=== PATIENT | male | born 1960 | race Two or more races ===

== ENCOUNTER 2019-02-09 09:36 | Inpatient (IN) | payer MEDICAID ==
[~2019-02-09] VITALS: Ht 167.6 cm; Wt 156.8 kg
[2019-02-09] MEDS ORDERED: normal saline 1000ML IV soln IV ONE (09:45)
[2019-02-09] MEDS ORDERED: piperacillin/tazo 3.375gm/50ml 50 ML IV ONE (09:45)
[2019-02-09] MEDS ORDERED: HYDROcodone/acetaminophen 5mg/325mg tablet PO ONE (10:00)
[2019-02-09] MEDS ORDERED: ondansetron/PF 4mg/2ml inj IV ONE (10:00)
[2019-02-09 10:22] LABS: BASOPHILS # (AUTO) 0.1 X10'3 (0-0.2); BASOPHILS % (AUTO) 0.4 % (0-1); EOSINOPHILS % (AUTO) 0.2 % (0-6); HEMATOCRIT 47.1 % (42.0-52.0); HEMOGLOBIN 15.3 g/dl (14.0-17.9); LYMPHOCYTES # (AUTO) 0.3 X10'3 (1.1-4.8); LYMPHOCYTES % (AUTO) 2.4 % (21-51); MEAN CORPUSCULAR HEMOGLOBIN 30.9 PG (27.0-31.0); MEAN CORPUSCULAR HGB CONC 32.5 g/dL (33.0-36.5); MEAN CORPUSCULAR VOLUME 94.9 FL (78-98); MEAN PLATELET VOLUME 10.8 FL (7.4-10.4); MONOCYTES # (AUTO) 0.7 X10'3 (0-0.9); MONOCYTES % (AUTO) 5.2 % (2-12); NEUTROPHILS % (AUTO) 91.8 % (42-75); PLATELET COUNT 230 X10'3 (140-440); RED BLOOD COUNT 4.96 X10'6 (4.70-6.10); RED CELL DISTRIBUTION WIDTH 13.6 % (11.5-14.5); WHITE BLOOD COUNT 14.2 X10'3 (4.5-11.0)
[2019-02-09] MEDS: vancomycin/NS 1 GM ADD-VANTAGE 250 ML IV ONE ×2 (10:24→11:10)
[2019-02-09 10:33] LABS: PARTIAL THROMBOPLASTIN TIME 28 SECONDS (22-32)
[2019-02-09] MEDS ORDERED: normal saline 1000ml 1,000 ML IV ONE (10:35)
[2019-02-09 10:36] LABS: ALANINE AMINOTRANSFERASE 36 U/L (12-78); ALBUMIN 3.2 G/DL (3.4-5.0); ALBUMIN/GLOBULIN RATIO 0.9 (1.1-1.5); ALKALINE PHOSPHATASE 93 IU/L (46-116); ANION GAP 9 (8-16); ASPARTATE AMINO TRANSFERASE 15 U/L (10-37); BILIRUBIN,TOTAL 0.8 MG/DL (0.1-1.0); BLOOD UREA NITROGEN 13 MG/DL (7-18); BUN/CREATININE RATIO 10.6 (5.4-32.0); CALCIUM 9.1 MG/DL (8.5-10.1); CHLORIDE 98 MMOL/L (99-107); CREATININE 1.23 MG/DL (0.60-1.10); GLUCOSE 332 MG/DL (70-104); MAGNESIUM 1.5 MG/DL (1.5-2.4); POTASSIUM 3.8 MMOL/L (3.5-5.1); SODIUM 137 MMOL/L (135-145); TOTAL CARBON DIOXIDE 30.1 MMOL/L (24-32); TOTAL PROTEIN 6.9 G/DL (6.4-8.2); eGFR 61 ML/MIN
[2019-02-09] MEDS ORDERED: ketorolac trometh. 30mg/ml inj. IV ONE (11:15)
[2019-02-09] MEDS ORDERED: ketorolac tromethamine 15mg/ml inj. IV ONE (11:15)
[2019-02-09 11:29] LABS: LARGE PLATELETS FEW; PLATELET ESTIMATE NORMAL
[2019-02-09] MEDS ORDERED: HYDROcodone/acetaminophen 5mg/325mg tablet PO PRN (11:35)
[2019-02-09] MEDS ORDERED: magnesium 4gm in 100ml NS 100 ML IV PRN (11:35)
[2019-02-09] MEDS ORDERED: potassium Cl 20 mEq SR tablet PO PRN ×2 (11:35)
[2019-02-09] MEDS ORDERED: glucagon, human recombinant 1mg kit SUBCUT PRN (11:35)
[2019-02-09] MEDS ORDERED: potassium Cl 40MEQ/NS 500ml 500 ML IV PRN ×2 (11:35)
[2019-02-09] MEDS ORDERED: ondansetron/PF 4mg/2ml inj IV PRN (11:35)
[2019-02-09] MEDS ORDERED: mag hydrox/Alum hydrox/simeth 30ml oral suspension PO PRN (11:35)
[2019-02-09] MEDS ORDERED: dextrose ORAL solution 15 GM/59 ML bottle PO PRN ×2 (11:35)
[2019-02-09] MEDS ORDERED: dextrose 50%-water 50ml dispensing syringe IV PRN ×2 (11:35)
[2019-02-09] MEDS ORDERED: acetaminophen 325mg tablet PO PRN (11:35)
[2019-02-09] MEDS ORDERED: magnesium 2GM in 50ml NS 50 ML IV PRN (11:35)
[2019-02-09] MEDS ORDERED: magnesium hydroxide 30ml (MOM) UD suspension PO PRN (11:35)
[2019-02-09] MEDS ORDERED: MESSAGE TO PHARMACY PO ONE (11:35)
[2019-02-09 11:38] LABS: CLARITY,URINE CLEAR (Clear); COLOR,URINE YELLOW (Yellow); GLUCOSE, URINE >=1000 mg/dl (Neg); KETONES,URINE NEGATIVE (Neg); LEUKOCYTE ESTERASE ,URINE NEGATIVE (Neg); NITRITES, URINE NEGATIVE (Neg); OCCULT BLOOD,URINE TRACE-INTACT (Neg); PROTEIN,URINE 30 mg/dl (Neg)
[2019-02-09] MEDS: normal saline 1000ml 1,000 ML IV SCH ×2 (11:44→18:08)
[2019-02-09] MEDS ORDERED: LORazepam 1 MG tablet PO PRN (11:50)
[2019-02-09] MEDS ORDERED: haloperidol 5mg tablet PO PRN (11:50)
[2019-02-09] MEDS ORDERED: haloperidol lactate 5mg/ml inj IM PRN (11:50)
[2019-02-09] MEDS ORDERED: thiamine inj. 100 MG in normal saline 100ml IV soln 100 ML IV ONE (11:50)
[2019-02-09] MEDS ORDERED: LORazepam 2 mg/ml vial IV PRN (11:50)
[2019-02-09 12:07] LABS: PH,URINE 6.5 (4.8-8.0)
[2019-02-09 12:08] LABS: UA COLLECTION TYPE NON-SPECIFIED
[2019-02-09 12:21] LABS: SQUAMOUS EPITHELIAL CELL,UR NONE SEEN /LPF (FEW)
[2019-02-09] MEDS ORDERED: METF-436 PO (12:21)
[2019-02-09 12:22] LABS: WBC,URINE 0-4 /HPF (0-4)
[2019-02-09 12:23] LABS: RBC,URINE 0-2 /HPF (0-2)
[2019-02-09 12:24] LABS: BACTERIA,URINE FEW /HPF (Neg)
[2019-02-09] MEDS ORDERED: LISI1TAB13 PO (12:36)
[2019-02-09] MEDS ORDERED: BUPR2TAB11 SL (12:36)
[2019-02-09] MEDS ORDERED: TRAM50TA2 PO (12:36)
[2019-02-09] MEDS ORDERED: PRIM50TA42 PO (12:36)
[2019-02-09] MEDS ORDERED: INSU100I31 SQ (12:36)
[2019-02-09] MEDS ORDERED: ERTU5TAB PO (12:36)
--- NOTE | 2019-02-09 13:09 | NUR ---
Wound pictures obtained of bilateral heels and placed in chart
[2019-02-09] MEDS: insulin Lispro (HumaLOG) vial - multi-dose SQ SCH ×3 (13:51→21:33)
[2019-02-09] MEDS: HYDROcodone/acetaminophen 10/325mg tab PO PRN (14:14)
[2019-02-09] MEDS: cefepime 1GM/NS ADD-VANTAGE 100 ML IV SCH (16:12)
[2019-02-09] MEDS: acetaminophen 325mg tablet PO PRN (16:34)
--- NOTE | 2019-02-09 17:14 | NUR ---
patient assisted to restroom at this time with walker, able to ambulate with out assistance, gait steady and balance, call light within reach.
--- NOTE | 2019-02-09 21:00 | NUR ---
pt sleeping, awakened to give the evening med and hs insulin for accucheck of 350.
[2019-02-09] MEDS: primidone 50mg tablet PO SCH (21:14)
[2019-02-09] MEDS: insulin glargine (Lantus) pen - multi-dose SQ SCH (21:16)
--- NOTE | 2019-02-09 21:58 | NUR ---
RELIEVING RN FOR BREAK, PT IS SLEEPING QUIETLY ON GURNEY, RESP EVEN AND UNLABORED
--- NOTE | 2019-02-09 23:38 | NUR ---
PT HAS ROOM ASSIGNMENT, 3028B, PT HAS ACCIDENTALLY PULLED OUT HIS IV. WILL REPLACE THIS PRIOR TO GOING UPSTAIRS.
[2019-02-10 00:15] VITALS: BP 167/92
[2019-02-10] MEDS: cefepime 1GM/NS ADD-VANTAGE 100 ML IV SCH ×3 (00:30→16:00)
[2019-02-10] MEDS: normal saline 1000ml 1,000 ML IV SCH ×2 (01:24→07:31)
[2019-02-10] MEDS: HYDROcodone/acetaminophen 10/325mg tab PO PRN (01:48)
[2019-02-10 02:00] VITALS: BP 151/87
[2019-02-10 05:37] LABS: BASOPHILS % (AUTO) 0.6 % (0-1); EOSINOPHILS % (AUTO) 0.4 % (0-6); HEMATOCRIT 42.7 % (42.0-52.0); HEMOGLOBIN 13.8 g/dl (14.0-17.9); LYMPHOCYTES # (AUTO) 0.7 X10'3 (1.1-4.8); LYMPHOCYTES % (AUTO) 9.8 % (21-51); MEAN CORPUSCULAR HGB CONC 32.4 g/dL (33.0-36.5); MEAN CORPUSCULAR VOLUME 95.7 FL (78-98); MEAN PLATELET VOLUME 10.6 FL (7.4-10.4); MONOCYTES # (AUTO) 0.8 X10'3 (0-0.9); MONOCYTES % (AUTO) 10.4 % (2-12); NEUTROPHILS # (AUTO) 5.8 X10'3 (1.8-7.7); NEUTROPHILS % (AUTO) 78.8 % (42-75); PLATELET COUNT 181 X10'3 (140-440); RED BLOOD COUNT 4.46 X10'6 (4.70-6.10); RED CELL DISTRIBUTION WIDTH 14.1 % (11.5-14.5); WHITE BLOOD COUNT 7.4 X10'3 (4.5-11.0)
[2019-02-10 06:00] VITALS: BP 185/105
[2019-02-10 06:05] LABS: ALANINE AMINOTRANSFERASE 83 U/L (12-78); ALBUMIN 2.8 G/DL (3.4-5.0); ALBUMIN/GLOBULIN RATIO 0.8 (1.1-1.5); ALKALINE PHOSPHATASE 86 IU/L (46-116); AMYLASE 15 U/L (25-115); ANION GAP 7 (8-16); ASPARTATE AMINO TRANSFERASE 62 U/L (10-37); BILIRUBIN,TOTAL 0.8 MG/DL (0.1-1.0); BLOOD UREA NITROGEN 17 MG/DL (7-18); BUN/CREATININE RATIO 18.3 (5.4-32.0); CALCIUM 8.5 MG/DL (8.5-10.1); CHLORIDE 101 MMOL/L (99-107); CREATININE 0.93 MG/DL (0.60-1.10); GLUCOSE 290 MG/DL (70-104); LIPASE 82 U/L (73-393); MAGNESIUM 1.9 MG/DL (1.5-2.4); PHOSPHORUS 3.1 MG/DL (2.3-4.5); POTASSIUM 4.4 MMOL/L (3.5-5.1); SODIUM 136 MMOL/L (135-145); TOTAL CARBON DIOXIDE 28.4 MMOL/L (24-32); TOTAL PROTEIN 6.3 G/DL (6.4-8.2); eGFR 84 ML/MIN
--- NOTE | 2019-02-10 06:20 | NUR ---
Patient in room PCU 3028. I have received report from Joanna FLORES and had the opportunity to ask questions and assume patient care.
[2019-02-10] MEDS: folic acid 1mg tablet PO SCH (07:40)
[2019-02-10] MEDS: multivitamins, therapeutics tablet PO SCH (07:40)
[2019-02-10] MEDS: HYDROchlorothiazide 25mg tablet PO SCH (07:40)
[2019-02-10] MEDS: lisinopril 20mg tablet PO SCH (07:41)
[2019-02-10] MEDS: thiamine 100mg tablet PO SCH (07:41)
[2019-02-10] MEDS: enoxaparin 40mg/0.4ml syringe SQ SCH (07:41)
[2019-02-10] MEDS: buprenorphine/naloxone 2-0.5mg sublingual tablet SL SCH (07:41)
[2019-02-10] MEDS ORDERED: folic acid inj. 2 MG, thiamine inj. 100 MG, MVI, adult No.4 with vit. K 10 ML in dextro... IV SCH ×4 (08:00)
[2019-02-10] MEDS ORDERED: non-formulary drug (Lisinopril/Hydrochlorothiazide (Lisinopril-Hctz 20-25 mg Tab) 1 TAB) PO SCH (08:00)
[2019-02-10] MEDS ORDERED: non-formulary drug (Buprenorphine Hcl 1 TAB) SL SCH (08:00)
[2019-02-10] MEDS: K and/or MAG REPLACEMENT MC SCH (08:00)
[2019-02-10] MEDS: insulin Lispro (HumaLOG) vial - multi-dose SQ SCH ×4 (10:50→22:05)
[2019-02-10 11:11] VITALS: BP 144/89
[2019-02-10] MEDS ORDERED: iohexol 350MG/ML 100ml bottle IV ONE (12:05)
--- NOTE | 2019-02-10 12:11 | NUR ---
DM Consult: A1C 10. Pt w/ BLE cellulitis and sepsis s/p cutting foot several months ago. Drinks multiple whiskeys each night on etoh protocol. PO 100% carb controlled meals. LBM /. Pt unable to wake during RD visit. Written DM/high protein eds left at bedside along w/ RD contact information. Double proteins TIDWM added given good PO, severe morbid obesity, and increased needs w/ infection. Rec: 1. continue carb controlled diet 2. double proteins TIDWM 3. thiamin for etoh hx 4. wt per rx Addendum: 02/10/19 at [address] Amended: Links added.
--- NOTE | 2019-02-10 16:30 | NUR ---
Problems reprioritized. Patient report given, questions answered & plan of care reviewed with Joslyn FLORES. Pt transfered to Surgical unit .
[2019-02-10] MEDS ORDERED: VANCOMYCIN LEVEL IV ONE (18:30)
--- NOTE | 2019-02-10 18:30 | NUR ---
Patient in room AMANDA 357. I have received report from NILES FLORES and had the opportunity to ask questions and assume patient care.
[2019-02-10] MEDS: lactobacillus rhamnosus 10,000 MMU CELLS/CAPSULE PO SCH (20:09)
[2019-02-10] MEDS: primidone 50mg tablet PO SCH (20:17)
[2019-02-10] MEDS: acetaminophen 325mg tablet PO PRN (20:40)
[2019-02-10] MEDS: insulin glargine (Lantus) pen - multi-dose SQ SCH (22:06)
[2019-02-11] VITALS: BP 169/90
[2019-02-11] MEDS: cefepime 1GM/NS ADD-VANTAGE 100 ML IV SCH ×3 (01:07→17:46)
[2019-02-11] MEDS: normal saline 1000ml 1,000 ML IV SCH ×2 (03:20→21:34)
[2019-02-11 06:23] LABS: BASOPHILS % (AUTO) 0.4 % (0-1); EOSINOPHILS # (AUTO) 0.1 X10'3 (0-0.9); EOSINOPHILS % (AUTO) 1.7 % (0-6); HEMATOCRIT 42.5 % (42.0-52.0); LYMPHOCYTES # (AUTO) 0.7 X10'3 (1.1-4.8); LYMPHOCYTES % (AUTO) 8.1 % (21-51); MEAN CORPUSCULAR HEMOGLOBIN 31.1 PG (27.0-31.0); MEAN CORPUSCULAR HGB CONC 32.8 g/dL (33.0-36.5); MEAN CORPUSCULAR VOLUME 94.8 FL (78-98); MEAN PLATELET VOLUME 10.1 FL (7.4-10.4); MONOCYTES # (AUTO) 0.8 X10'3 (0-0.9); MONOCYTES % (AUTO) 10.3 % (2-12); NEUTROPHILS # (AUTO) 6.5 X10'3 (1.8-7.7); NEUTROPHILS % (AUTO) 79.5 % (42-75); PLATELET COUNT 197 X10'3 (140-440); RED BLOOD COUNT 4.48 X10'6 (4.70-6.10); RED CELL DISTRIBUTION WIDTH 13.7 % (11.5-14.5); WHITE BLOOD COUNT 8.2 X10'3 (4.5-11.0)
--- NOTE | 2019-02-11 06:30 | NUR ---
Patient in room AMANDA 357. I have received report from VEDA FLORES and had the opportunity to ask questions and assume patient care.
--- NOTE | 2019-02-11 06:30 | NUR ---
Problems reprioritized. Patient report given, questions answered & plan of care reviewed with MELIDA RN.
[2019-02-11 06:36] LABS: ALANINE AMINOTRANSFERASE 100 U/L (12-78); ALBUMIN 2.7 G/DL (3.4-5.0); ALBUMIN/GLOBULIN RATIO 0.8 (1.1-1.5); ALKALINE PHOSPHATASE 94 IU/L (46-116); AMYLASE 16 U/L (25-115); ANION GAP 7 (8-16); ASPARTATE AMINO TRANSFERASE 43 U/L (10-37); BILIRUBIN,TOTAL 0.8 MG/DL (0.1-1.0); BLOOD UREA NITROGEN 15 MG/DL (7-18); BUN/CREATININE RATIO 21.4 (5.4-32.0); CALCIUM 8.6 MG/DL (8.5-10.1); CHLORIDE 100 MMOL/L (99-107); GLUCOSE 215 MG/DL (70-104); LIPASE 74 U/L (73-393); MAGNESIUM 1.9 MG/DL (1.5-2.4); PHOSPHORUS 2.3 MG/DL (2.3-4.5); SODIUM 136 MMOL/L (135-145); TOTAL CARBON DIOXIDE 28.8 MMOL/L (24-32); TOTAL PROTEIN 6.2 G/DL (6.4-8.2); eGFR > 90 ML/MIN
[2019-02-11 08:00] VITALS: BP 165/85
[2019-02-11] MEDS: K and/or MAG REPLACEMENT MC SCH (08:00)
[2019-02-11] MEDS: acetaminophen 325mg tablet PO PRN (08:27)
[2019-02-11] MEDS: lactobacillus rhamnosus 10,000 MMU CELLS/CAPSULE PO SCH ×2 (08:28→21:19)
[2019-02-11] MEDS: HYDROchlorothiazide 25mg tablet PO SCH (08:28)
[2019-02-11] MEDS: lisinopril 20mg tablet PO SCH (08:29)
[2019-02-11] MEDS: thiamine 100mg tablet PO SCH (08:30)
[2019-02-11] MEDS: multivitamins, therapeutics tablet PO SCH (08:30)
[2019-02-11] MEDS: buprenorphine/naloxone 2-0.5mg sublingual tablet SL SCH (08:30)
[2019-02-11] MEDS: folic acid 1mg tablet PO SCH (08:31)
[2019-02-11] MEDS: enoxaparin 40mg/0.4ml syringe SQ SCH (08:32)
[2019-02-11] MEDS: insulin Lispro (HumaLOG) vial - multi-dose SQ SCH ×4 (09:58→21:31)
[2019-02-11 11:00] VITALS: BP 149/94
--- NOTE | 2019-02-11 19:09 | NUR ---
Problems reprioritized. Patient report given, questions answered & plan of care reviewed with Rina FLORES.
--- NOTE | 2019-02-11 19:10 | NUR ---
Patient in room AMANDA 357. I have received report from MELIDA FLORES and had the opportunity to ask questions and assume patient care.
[2019-02-11 20:00] VITALS: BP 157/85
[2019-02-11] MEDS: primidone 50mg tablet PO SCH (21:19)
[2019-02-11] MEDS: insulin glargine (Lantus) pen - multi-dose SQ SCH (21:30)
[2019-02-12] VITALS: BP 113/75
[2019-02-12] MEDS: cefepime 1GM/NS ADD-VANTAGE 100 ML IV SCH ×2 (00:38→08:42)
[2019-02-12] MEDS: acetaminophen 325mg tablet PO PRN (05:03)
[2019-02-12 06:20] LABS: BASOPHILS # (AUTO) 0.1 X10'3 (0-0.2); BASOPHILS % (AUTO) 0.7 % (0-1); EOSINOPHILS # (AUTO) 0.1 X10'3 (0-0.9); EOSINOPHILS % (AUTO) 1.6 % (0-6); HEMATOCRIT 40.4 % (42.0-52.0); HEMOGLOBIN 13.2 g/dl (14.0-17.9); LYMPHOCYTES # (AUTO) 0.8 X10'3 (1.1-4.8); LYMPHOCYTES % (AUTO) 10.3 % (21-51); MEAN CORPUSCULAR HEMOGLOBIN 30.7 PG (27.0-31.0); MEAN CORPUSCULAR HGB CONC 32.6 g/dL (33.0-36.5); MEAN CORPUSCULAR VOLUME 94.2 FL (78-98); MEAN PLATELET VOLUME 10.3 FL (7.4-10.4); MONOCYTES # (AUTO) 1.1 X10'3 (0-0.9); MONOCYTES % (AUTO) 13.5 % (2-12); NEUTROPHILS # (AUTO) 5.8 X10'3 (1.8-7.7); NEUTROPHILS % (AUTO) 73.9 % (42-75); PLATELET COUNT 197 X10'3 (140-440); RED BLOOD COUNT 4.29 X10'6 (4.70-6.10); RED CELL DISTRIBUTION WIDTH 13.7 % (11.5-14.5); WHITE BLOOD COUNT 7.8 X10'3 (4.5-11.0)
--- NOTE | 2019-02-12 06:20 | NUR ---
Patient in room AMANDA 357. I have received report from Patito Caputo RN and had the opportunity to ask questions and assume patient care.
[2019-02-12 06:30] VITALS: BP 148/64
--- NOTE | 2019-02-12 06:30 | NUR ---
Problems reprioritized. Patient report given, questions answered & plan of care reviewed with JAYCEE RN.
[2019-02-12 06:58] LABS: ALANINE AMINOTRANSFERASE 87 U/L (12-78); ALBUMIN 2.5 G/DL (3.4-5.0); ALBUMIN/GLOBULIN RATIO 0.7 (1.1-1.5); ALKALINE PHOSPHATASE 101 IU/L (46-116); AMYLASE 17 U/L (25-115); ANION GAP 5 (8-16); ASPARTATE AMINO TRANSFERASE 42 U/L (10-37); BLOOD UREA NITROGEN 16 MG/DL (7-18); CALCIUM 8.8 MG/DL (8.5-10.1); CHLORIDE 99 MMOL/L (99-107); CREATININE 0.94 MG/DL (0.60-1.10); GLUCOSE 235 MG/DL (70-104); LIPASE 73 U/L (73-393); MAGNESIUM 1.9 MG/DL (1.5-2.4); SODIUM 133 MMOL/L (135-145); TOTAL CARBON DIOXIDE 29.4 MMOL/L (24-32); TOTAL PROTEIN 6.1 G/DL (6.4-8.2); eGFR 83 ML/MIN
[2019-02-12] MEDS: K and/or MAG REPLACEMENT MC SCH (08:00)
[2019-02-12] MEDS: buprenorphine/naloxone 2-0.5mg sublingual tablet SL SCH (08:00)
[2019-02-12] MEDS: insulin Lispro (HumaLOG) vial - multi-dose SQ SCH (08:41)
[2019-02-12] MEDS: lactobacillus rhamnosus 10,000 MMU CELLS/CAPSULE PO SCH (08:42)
[2019-02-12] MEDS: folic acid 1mg tablet PO SCH (08:42)
[2019-02-12 08:43] VITALS: BP_SYST 148
[2019-02-12] MEDS: HYDROchlorothiazide 25mg tablet PO SCH (08:43)
[2019-02-12] MEDS: lisinopril 20mg tablet PO SCH (08:43)
[2019-02-12] MEDS: multivitamins, therapeutics tablet PO SCH (08:44)
[2019-02-12] MEDS: thiamine 100mg tablet PO SCH (08:44)
[2019-02-12] MEDS: enoxaparin 40mg/0.4ml syringe SQ SCH (08:46)
[2019-02-12] MEDS ORDERED: FOLI1TAB16 PO (10:34)
[2019-02-12] MEDS ORDERED: MULT-1179 PO (10:34)
[2019-02-12] MEDS ORDERED: LACT1CAP26 PO (10:34)
[2019-02-12] MEDS ORDERED: LINE600T36 PO (10:34)
[2019-02-12] MEDS ORDERED: thiamine tablet PO (10:34)
--- NOTE | 2019-02-12 11:33 | NUR ---
DC completed. Awaiting pt ride.
--- NOTE | 2019-02-12 11:50 | NUR ---
DC inst provided to pt. IV DC'd, tip intact. All belongings sent w/pt. WC to front lobby.
== END 2019-02-12 11:56 | disposition home or self-care (01) | DRG 720 ==
LOC: ER 09:37 → PCU 3S 11:35 → EDBEDREQSVC 11:41 → SUR 3N 02-10 16:17
PROVIDERS: ADMIT Family Medicine; ATTEND Family Medicine
PROC: B32T1ZZ Computerized Tomography (CT Scan) of Left Pulmonary Artery using Low Osmolar Contrast (ICD-10-PCS; principal; 2019-02-10)
PROC: B3201ZZ Computerized Tomography (CT Scan) of Thoracic Aorta using Low Osmolar Contrast (ICD-10-PCS; 2019-02-10)
PROC: B32S1ZZ Computerized Tomography (CT Scan) of Right Pulmonary Artery using Low Osmolar Contrast (ICD-10-PCS; 2019-02-10)
DX: A41.9 Sepsis, unspecified organism (principal); E11.65 Type 2 diabetes mellitus with hyperglycemia; Z99.81 Dependence on supplemental oxygen; L03.115 Cellulitis of right lower limb; I10 Essential (primary) hypertension; L03.116 Cellulitis of left lower limb; F10.10 Alcohol abuse, uncomplicated; J44.9 Chronic obstructive pulmonary disease, unspecified; E66.2 Morbid (severe) obesity with alveolar hypoventilation; Y90.9 Presence of alcohol in blood, level not specified; R09.02 Hypoxemia; Z68.43 Body mass index [BMI] 50.0-59.9, adult; Z82.49 Family history of ischemic heart disease and other diseases of the circulatory system; Z87.891 Personal history of nicotine dependence; Z79.899 Other long term (current) drug therapy
CPT/HCPCS: 36415; 71045; 71275; 80053; 80202; 81001; 82150; 82948; 83036; 83605; 83690; 83735; 84100; 84145; 85025; 85610; 85730; 87040; 87070; 93005; 96365; 96366; 96367; 99285; G0378; J0692; J1650; J1815; J1885; J2405; J2543; J3370; J3411; J3490; J7030; J7060; Q9967

== ENCOUNTER 2020-05-21 08:14 | Day surgery (SDC) | payer MEDICARE, MEDICAID ==
[2020-05-17 15:46] LABS: BASOPHILS % (AUTO) 0.8 % (0-1); EOSINOPHILS # (AUTO) 0.2 X10'3 (0-0.9); EOSINOPHILS % (AUTO) 4.2 % (0-6); LYMPHOCYTES # (AUTO) 0.7 X10'3 (1.1-4.8); LYMPHOCYTES % (AUTO) 12.7 % (21-51); MEAN CORPUSCULAR HEMOGLOBIN 29.7 PG (27.0-31.0); MEAN CORPUSCULAR HGB CONC 31.7 g/dL (33.0-36.5); MEAN CORPUSCULAR VOLUME 93.6 FL (78-98); MEAN PLATELET VOLUME 8.9 FL (7.4-10.4); MONOCYTES # (AUTO) 0.7 X10'3 (0-0.9); MONOCYTES % (AUTO) 12.2 % (2-12); NEUTROPHILS % (AUTO) 70.1 % (42-75); PRE OP HEMOGLOBIN 14.6 g/dL (14.0-17.9); PRE OP PLATELET COUNT 268 X10'3 (140-440); RED BLOOD COUNT 4.91 X10'6 (4.70-6.10); RED CELL DISTRIBUTION WIDTH 14.1 % (11.5-14.5)
[2020-05-17 16:01] LABS: ALBUMIN/GLOBULIN RATIO 0.8 (1.1-1.5); ALKALINE PHOSPHATASE 112 IU/L (46-116); BLOOD UREA NITROGEN 12 MG/DL (7-18); BUN/CREATININE RATIO 13.8 (5.4-32.0); CALCIUM 8.8 MG/DL (8.5-10.1); CHLORIDE 102 MMOL/L (99-107); CREATININE 0.87 MG/DL (0.60-1.10); PRE OP ALT 22 U/L (30-65); PRE OP ANION GAP 5 (8-16); PRE OP AST 17 U/L (10-37); PRE OP POTASSIUM 3.9 MMOL/L (3.4-5.1); PRE OP SODIUM 138 MMOL/L (135-145); TOTAL CARBON DIOXIDE 30.7 MMOL/L (24-32); TOTAL PROTEIN 6.7 G/DL (6.4-8.2); eGFR 90 ML/MIN
[2020-05-17 16:02] LABS: PRE OP GLUCOSE 260 MG/DL (70-104)
[~2020-05-21] VITALS: Ht 167.6 cm; Wt 376.0 kg
[2020-05-21] VITALS (7 sets, daily range): BP systolic 133–162; BP diastolic 70–98
[~2020-05-21 08:14] MED LIST: LANTUS SQ; LIDOcaine 1% 30ml preserv. free vial ONE; LISI1TAB29 PO; METF-436 PO; ceFAZolin 1,000 MG in NS 100ML IVPB IV ONE; ceFAZolin 2gm in dextrose, iso 50 ML IV ONE; famotidine 20mg tablet PO ONE; ringers solution, lacted 1,000 ML IV SCH
[2020-05-21] MEDS ORDERED: morphine 4 MG/ML inj SYRINge IV PRN (08:15)
[2020-05-21] MEDS ORDERED: ondansetron/PF 4mg/2ml inj IV PRN (08:15)
[2020-05-21] MEDS ORDERED: ringers solution, lacted 1,000 ML IV SCH (08:15)
[2020-05-21] MEDS ORDERED: proCHLORperazine 10 MG/2 ml inj IV PRN (08:15)
[2020-05-21] MEDS ORDERED: morphine 2 MG/ML inj. syringe IV PRN (08:15)
[2020-05-21] MEDS ORDERED: meperidine/PF 25mg/ml syringe IV PRN ×3 (08:15)
[2020-05-21] MEDS ORDERED: fentaNYL/PF 50MCG/1 ML 2ML syringe ONE (11:00)
[2020-05-21] MEDS ORDERED: MIDAZolam 5mg/5ml vial ONE (11:00)
[2020-05-21] MEDS ORDERED: BUPIVAcaine/PF 2.5mg/ml (0.25%) 10ml vial ONE (11:11)
--- NOTE | 2020-05-21 11:31 | NUR ---
Received from OR via , accompanied by Anesthesiologist DR PAYAN and report given by Anesthesiolgist. PT IS AWAKE, VSS, ABLE TO WIGGLE FINGERS ON RIGHT HAND, SKIN WARM AND PINK, VSS, PIV LEFT HAND PATENT WITH LR 100ML/HR, NO C/O PAIN.
--- NOTE | 2020-05-21 12:11 | NUR ---
PT MEETS DISCHARGE CRITERIA. NO C/O PAIN, COCO FLUIDS, IV REMOVED, SKIN WARM AND PINK, MOVING FINGERS ON SURGICAL SIDE, VSS, REVIEWED DISCHARGE INSTRUCTIONS. TAKEN OUT TO [facility] VIA W/C. SISTER MET US AT THE HOSPITAL AND WILL BE GOING TO PT'S HOUSE TO BE WITH PT AFTER [facility] DELIVERY.
== END 2020-05-21 12:11 | disposition home or self-care (01) ==
LOC: PAS 08:14
PROVIDERS: ATTEND Orthopaedic Surgery Hand Surgery
DX: G56.01 Carpal tunnel syndrome, right upper limb (principal); I10 Essential (primary) hypertension; M17.12 Unilateral primary osteoarthritis, left knee; E66.01 Morbid (severe) obesity due to excess calories; Z68.44 Body mass index [BMI] 60.0-69.9, adult; Z79.899 Other long term (current) drug therapy; Z72.89 Other problems related to lifestyle; Z79.4 Long term (current) use of insulin; Z11.59 Encounter for screening for other viral diseases; Z98.890 Other specified postprocedural states; Z87.891 Personal history of nicotine dependence
CPT/HCPCS: 36415; 64721; 71046; 80053; 82948; 85025; 87635; 93005; C9803; J0690; J2001; J2250; J3010; J3490; U0003; A4215; J7120

== ENCOUNTER 2024-03-14 16:22 | Outpatient (CLI) | payer MEDICARE, MEDICAID ==
[~2024-03-14 16:22] MED LIST changes: -LIDOcaine 1% 30ml preserv. free vial ONE; -LISI1TAB29 PO; +LISI1TAB53 PO; -ceFAZolin 1,000 MG in NS 100ML IVPB IV ONE; -ceFAZolin 2gm in dextrose, iso 50 ML IV ONE; -famotidine 20mg tablet PO ONE; -ringers solution, lacted 1,000 ML IV SCH
== END 2024-03-14 23:59 | disposition home or self-care (01) ==
LOC: RAD 16:22
PROVIDERS: ATTEND Nurse Practitioner Family
DX: M77.31 Calcaneal spur, right foot (principal); E11.628 Type 2 diabetes mellitus with other skin complications; R60.9 Edema, unspecified
CPT/HCPCS: 73630

== ENCOUNTER 2025-05-03 10:32 | Outpatient (CLI) | payer MEDICARE, MEDICAID ==
--- NOTE | 2025-05-03 15:43 | RADIOLOGY REPORT ---
CLINICAL INFORMATION: Finger swelling. 5th digit pain and swelling. Erosive changes. TECHNIQUE: Axial CT images of the left hand were obtained without IV contrast. Examination was focuse d on the area of concern in the 5th digit. Coronal and sagittal reformatted images were obtained, rev iewed, and stored. All CT scans at this medical facility are performed using dose modulation techniq ues as appropriate to a performed exam including the following: Automated exposure control was utiliz ed; adjustment of the MA and/or KV according to patient size; and use of iterative reconstruction mildred hnique. CTDIvol = 14.5 mGy DLP = 289.41 mGy-cm COMPARISON: None. FINDINGS: There is moderate to marked soft tissue swelling in the 5th digit, greatest near the PIP radha int. Extensive bony destructive changes are seen of the base of the middle phalanx with multiple smal l mildly displaced ossific fragments in this location. No erosive changes are seen of the head of the proximal phalanx. No other erosive changes are seen in the visualized portions of the left hand. Pro bable moderate fluid in the PIP joint. IMPRESSION: Moderate to marked soft tissue swelling of the 5th digit with extensive bony destructive changes of t he base of the middle phalanx. Differential considerations would include septic arthritis with associ ated osteomyelitis or inflammatory arthropathy. Correlate with clinical findings.
== END 2025-05-03 23:59 | disposition home or self-care (01) ==
LOC: RAD 10:32
PROVIDERS: ATTEND Pediatrics Sports Medicine
DX: M79.89 Other specified soft tissue disorders (principal)
CPT/HCPCS: 73200

== ENCOUNTER 2025-07-24 05:32 | Day surgery (SDC) | payer MEDICARE, MEDICAID ==
[2025-07-20 11:22] LABS: MEAN PLATELET VOLUME 8.9 FL (7.4-10.4); PRE OP HEMATOCRIT 35.5 % (42.0-52.0); PRE OP HEMOGLOBIN 11.6 g/dL (14.0-17.9); PRE OP PLATELET COUNT 321 X10'3 (140-440); PRE OP WHITE BLOOD COUNT 8.1 10'3 (4.8-10.8); RED CELL DISTRIBUTION WIDTH 15.4 % (11.5-14.5)
--- NOTE | 2025-07-20 11:35 | ELECTROCARDIOGRAPH REPORT ---
[facility] Test Date: 2025-07-20 Test Time: 11:33:25 Pat Name: SANAM HANDLEY Department: [facility]-PRE-OP Patient ID: [facility]-[id number] Room: Gender: M Ear Flap Binder: seth : [id number] Requested By: KIMBERLEY ARCE Order Number: [id number] Reading MD: Dr. Dev Huizar Measurements Intervals [place]att Rate: 100 P: 87 OK: 181 QRS: 89 QRSD: 143 T: 55 QT: 354 QTc: 457 Interpretive Statements Sinus tachycardia Right bundle branch block Electronically Signed On 07-24-2025 7:08:[address] Dev Huizar Please click the below link to view image of tracing.
[2025-07-20 11:36] LABS: CREATININE 2.28 MG/DL (0.60-1.10); PRE OP BILIRUB, TOTAL 0.7 MG/DL (0.0-1.0); PRE OP GLUCOSE 103 MG/DL (70-104); PRE OP POTASSIUM 5.2 MMOL/L (3.4-5.1); PRE OP SODIUM 135 MMOL/L (135-145); TOTAL CARBON DIOXIDE 30.3 MMOL/L (24-32); eGFR 29 ML/MIN
[2025-07-20 11:38] LABS: PRE OP ALT 23 U/L (30-65); PRE OP ANION GAP 5 (8-16); PRE OP AST 23 U/L (10-37)
[2025-07-24] VITALS (9 sets, daily range): BP systolic 121–137; BP diastolic 67–76; PULSE 89–97; RESP 8–20; TEMP 97; O2SAT 95–99
[~2025-07-24] VITALS: Ht 167.6 cm; Wt 104.4 kg
[~2025-07-24 05:32] MED LIST changes: +AMLO-708 PO; +ATOR40TA72 PO; +DAPA10TA PO; +DULO30CA52 PO; +FURO20TA4 PO; +IBUP600T52 PO; -LANTUS SQ; -LISI1TAB53 PO; +LISI20TA28 PO; -METF-436 PO; +POTA10CA95 PO; +PRIM50TA27 PO; +SEMA1PEN3 SQ; +VITAMIN B1 PO
[2025-07-24] MEDS: ceFAZolin 2gm/dext,iso 50mL 50 ML IV ONE (05:54)
[2025-07-24] MEDS ORDERED: LIDOcaine 2% (20mg/ml) 5ml vial ONE (06:41)
[2025-07-24] MEDS ORDERED: BUPIVAcaine/PF 2.5mg/ml (0.25%) 10ml vial ONE (06:41)
[2025-07-24] MEDS ORDERED: propofol inj 20 ML IV ONE (07:44)
[2025-07-24] MEDS: BUPIVAcaine/PF 2.5mg/ml (0.25%) 10ml vial IJ ONE (08:03)
--- NOTE | 2025-07-24 11:11 | OPERATIVE REPORT ---
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 Evaluation including x-rays showed lytic lesion involving the middle phalanx and extension of the proximal interphalangeal joint. Diagnosis of tumor versus osteomyelitis was made. Because of destruction of the joint salvage was not possible therefore amputation was elected as the definitive procedure. The risks and benefits were discussed with the patient and he agreed to proceed. He was brought to the operating room where the arm was prepped and draped in usual manner. A local anesthetic was infiltrated proximal to the finger. A fishmouth incision was made around the level of the PIPJ joint. Tendon transe ction and neurectomies were performed and amputation was performed at the middle level of the proximal phalanx. The finger was sent in its entirety to pathology for identification. Trimming of the edges and the bone were done with a rongeur and sharp instrumentation. The incision was then irrigated and closed with a Prolene suture followed by application of the sterile dressing. The tourniquet was released the hand perfused well and the patient was taken to the recovery room in stable condition. COREY LOW Jr., MD Jul 24, 2025 11:11
== END 2025-07-24 09:21 | disposition home or self-care (01) ==
LOC: PAS 05:32
PROVIDERS: ATTEND Orthopaedic Surgery Hand Surgery
DX: D16.11 Benign neoplasm of short bones of right upper limb (principal); I45.10 Unspecified right bundle-branch block; I10 Essential (primary) hypertension; E11.9 Type 2 diabetes mellitus without complications; E66.9 Obesity, unspecified; E78.5 Hyperlipidemia, unspecified; F41.9 Anxiety disorder, unspecified; F32.A Depression, unspecified; I25.2 Old myocardial infarction; Z86.73 Personal history of transient ischemic attack (TIA), and cerebral infarction without residual deficits; Z79.1 Long term (current) use of non-steroidal anti-inflammatories (NSAID); Z79.84 Long term (current) use of oral hypoglycemic drugs; Z79.891 Long term (current) use of opiate analgesic; Z79.899 Other long term (current) drug therapy; Z98.890 Other specified postprocedural states; Z68.41 Body mass index [BMI] 40.0-44.9, adult
CPT/HCPCS: 26951; 36415; 80053; 82948; 85025; 93005; A4618; A6222; A6402; A6449; A7000; J2003; J2704; J3490; J7030; J7120; Z7506; Z7512; Z7610

== ENCOUNTER 2025-09-06 13:48 | Outpatient (CLI) | payer MEDICARE, MEDICAID ==
--- NOTE | 2025-09-06 14:39 | RADIOLOGY REPORT ---
Exam: CT CT CHEST LOW DOSE Reason for study/Clinical History: Pain. Comparison Study: CHEST,TWO VIEWS on DOS: 05/17/20 Exam Date: 09/06/2025 02:00 PM TECHNIQUE: Multidetector CT of the chest was performed from the lung apices to the upper abdomen without the use of intravenous contract. Axial, coronal and sagittal multiplanar reformats were performed. Radiation Dose Information: CT Dose: CTDI volume is 3.7 mGy. Dose-length product is 131 mGy*cm The dose indicators for CT are the volume Computed Tomography (CT) Dose Index (CTDIvol) and the Dose Length Product (DLP), and are measured in units of mGy and mGy-cm, respectively. These indicators are not patient dose, but values generated from the CT scanner acquisition factors. The report includes radiation exposure data for exposures received during this examination. Findings: Lower neck: Unremarkable. Lungs and Pleura: No consolidation or suspicious pulmonary nodules. Bronchial wall thickening. No pleural effusions. Mild scarring in the anterior lungs. Lymph nodes: No mediastinal, hilar, or axillary lymphadenopathy. Cardiovascular and Mediastinum: No significant pericardial effusion. Scattered coronary calcifications. Osseous and soft tissues: No suspicious osseous lesions. Multilevel degenerative changes of the thoracic spine. DISH. Bilateral gynecomastia. Upper abdomen: No acute abnormality in the visualized upper abdomen. IMPRESSION: Mild bronchial wall thickening likely related to bronchitis. No suspicious lung nodule.
== END 2025-09-06 23:59 | disposition home or self-care (01) ==
LOC: RAD 13:48
PROVIDERS: ATTEND Nurse Practitioner Family
DX: Z12.2 Encounter for screening for malignant neoplasm of respiratory organs (principal); F17.210 Nicotine dependence, cigarettes, uncomplicated; J98.4 Other disorders of lung; I25.10 Atherosclerotic heart disease of native coronary artery without angina pectoris; N62 Hypertrophy of breast; M47.814 Spondylosis without myelopathy or radiculopathy, thoracic region; J98.09 Other diseases of bronchus, not elsewhere classified
CPT/HCPCS: 71271